=== PATIENT | female | born 1960 | race Asian ===

== ENCOUNTER 2017-11-06 10:50 | Outpatient (CLI) | payer BC, MEDICAID ==
[2017-11-06 19:09] LABS: BASOPHILS # (AUTO) 0.1 10^3/uL (0.0-0.1); BASOPHILS % (AUTO) 1.3 %; EOSINOPHILS # (AUTO) 0.1 10^3/uL (0.0-0.7); EOSINOPHILS % (AUTO) 2.1 %; HGB - HEMOGLOBIN 13.4 g/dL (12.0-16.0); LYMPHOCYTES # (AUTO) 1.7 10^3/uL (1.5-3.5); LYMPHOCYTES % (AUTO) 39.2 %; MEAN CORPUSCULAR HEMOGLOBIN 30.1 pg (27.0-31.0); MEAN CORPUSCULAR HGB CONC 32.8 g/dL (32.0-36.0); MEAN CORPUSCULAR VOLUME 91.9 fL (81.0-99.0); MEAN PLATELET VOLUME 8.2 fL (7.9-10.8); MONOCYTES # (AUTO) 0.3 10^3/uL (0.0-1.0); NEUTROPHILS # (AUTO) 2.1 10^3/uL (1.5-6.6); NEUTROPHILS % (AUTO) 49.4 %; PLT - PLATELET COUNT 229 10^3/uL (130-450); RED BLOOD COUNT 4.46 10^6/uL (4.20-5.40); RED CELL DISTRIBUTION WIDTH 13.8 % (12.0-15.0); WHITE BLOOD COUNT 4.3 x10^3/uL (4.8-10.8)
[2017-11-06 19:25] LABS: ALBUMIN 4.5 g/dL (3.2-5.5); ALBUMIN/GLOBULIN RATIO 1.1 (1.0-2.2); ALKALINE PHOSPHATASE 64 IU/L (42-121); ALT ALANINE AMINOTRANSFERASE 21 IU/L (10-60); AST ASPARTATE AMINOTRANSFERASE 28 IU/L (10-42); BILIRUBIN,TOTAL 0.9 mg/dL (0.2-1.0); BUN - BLOOD UREA NITROGEN 12 mg/dL (6-20); CALCIUM 9.2 mg/dL (8.5-10.3); CARBON DIOXIDE - CO2 27 mmol/L (21-32); CHLORIDE 104 mmol/L (101-111); CHOL/HDL RATIO 4.1 (<4.4); CHOLESTEROL 231 mg/dL; CREATININE 0.5 mg/dL (0.4-1.0); GFR - MDRD 126 (>89); GLUCOSE 98 mg/dL (70-100); HDL CHOLESTEROL 56 mg/dL; LDL CHOLESTEROL,CALCULATED 161 mg/dL; LDL/HDL RATIO 2.9 (<4.4); SODIUM 138 mmol/L (135-145); TOTAL PROTEIN 8.6 g/dL (6.7-8.2); VLDL CHOLESTEROL 14 mg/dL
[2017-11-06 19:28] LABS: HB2 TOTAL 14.9 g/dL; HEMOGLOBIN A1C 0.73 g/dL; HEMOGLOBIN A1C % 6.6 % (4.6-6.2)
[2017-11-06 19:32] LABS: THYROID STIMULATING HORMONE 0.72 uIU/mL (0.34-5.60)
== END 2017-11-06 10:51 | disposition home or self-care (01) ==
LOC: LAB.WCP 10:50
PROVIDERS: ATTEND Family Medicine
DX: Z00.00 Encounter for general adult medical examination without abnormal findings (principal)
CPT/HCPCS: 36415; 80053; 80061; 82306; 82607; 82746; 83036; 83721; 84443; 85025

== ENCOUNTER 2017-11-12 13:30 | Outpatient (CLI) | payer BC ==
[2017-11-12 20:00] LABS: HB2 TOTAL 15.2 g/dL; HEMOGLOBIN A1C 0.66 g/dL; HEMOGLOBIN A1C % 6.1 % (4.6-6.2)
== END 2017-11-12 13:31 ==
LOC: LAB.WCP 13:30
PROVIDERS: ATTEND Family Medicine
DX: R73.9 Hyperglycemia, unspecified (principal)
CPT/HCPCS: 36415; 83036

== ENCOUNTER 2019-04-02 09:01 | Outpatient (CLI) | payer OTHER ==
--- NOTE | 2019-04-04 02:28 | XRAY Report ---
Reason: HEEL PAIN Procedure Date: 04/02/2019 Accession Number: [id number] / [id number] Procedure: XRN - Foot 3 View RT CPT Code: FULL RESULT: EXAM: RIGHT FOOT RADIOGRAPHY EXAM DATE: 04/02/2019 09:45 AM. CLINICAL HISTORY: HEEL PAIN. COMPARISON: None. TECHNIQUE: 3 views. FINDINGS: Bones: No evidence of acute fracture. Plantar and posterior calcaneal spurring. Joints: Mild osteoarthritis at the first metatarsophalangeal joint. Soft Tissues: Abnormal thickening of the Achilles tendon, which may represent mucoid degeneration or tear. IMPRESSION: Plantar and posterior calcaneal spurring. Abnormal thickening of the Achilles tendon, which may represent mucoid degeneration or tear. RADIA
== END 2019-04-02 09:02 | disposition home or self-care (01) ==
LOC: DI.N 09:01
PROVIDERS: ATTEND Family Medicine
DX: M77.31 Calcaneal spur, right foot (principal)

== ENCOUNTER 2019-04-02 09:07 | Outpatient (CLI) | payer OTHER ==
[2019-04-02 12:01] LABS: BASOPHILS % (AUTO) 0.6 %; EOSINOPHILS # (AUTO) 0.2 10^3/uL (0.0-0.7); EOSINOPHILS % (AUTO) 3.4 %; HGB - HEMOGLOBIN 12.7 g/dL (12.0-16.0); LYMPHOCYTES # (AUTO) 1.9 10^3/uL (1.5-3.5); LYMPHOCYTES % (AUTO) 36.2 %; MEAN CORPUSCULAR HEMOGLOBIN 29.7 pg (27.0-31.0); MEAN CORPUSCULAR HGB CONC 31.7 g/dL (32.0-36.0); MEAN CORPUSCULAR VOLUME 93.7 fL (81.0-99.0); MEAN PLATELET VOLUME 10.1 fL (7.9-10.8); MONOCYTES # (AUTO) 0.4 10^3/uL (0.0-1.0); MONOCYTES % (AUTO) 8.1 %; NEUTROPHILS # (AUTO) 2.7 10^3/uL (1.5-6.6); NEUTROPHILS % (AUTO) 51.5 %; PLT - PLATELET COUNT 240 10^3/uL (130-450); RED BLOOD COUNT 4.28 10^6/uL (4.20-5.40); RED CELL DISTRIBUTION WIDTH 14.2 % (12.0-15.0); WHITE BLOOD COUNT 5.3 x10^3/uL (4.8-10.8)
[2019-04-02 12:14] LABS: ALBUMIN 4.1 g/dL (3.2-5.5); ALBUMIN/GLOBULIN RATIO 0.9 (1.0-2.2); ALKALINE PHOSPHATASE 64 IU/L (42-121); ALT ALANINE AMINOTRANSFERASE 21 IU/L (10-60); AST ASPARTATE AMINOTRANSFERASE 25 IU/L (10-42); BILIRUBIN,TOTAL 0.8 mg/dL (0.2-1.0); BUN - BLOOD UREA NITROGEN 15 mg/dL (6-20); CALCIUM 9.2 mg/dL (8.5-10.3); CARBON DIOXIDE - CO2 29 mmol/L (21-32); CHLORIDE 105 mmol/L (101-111); CHOL/HDL RATIO 3.6 (<4.4); CHOLESTEROL 197 mg/dL; CREATININE 0.6 mg/dL (0.4-1.0); GFR - MDRD 102 (>89); GLUCOSE 120 mg/dL (70-100); HDL CHOLESTEROL 54 mg/dL; LDL CHOLESTEROL,CALCULATED 125 mg/dL; LDL/HDL RATIO 2.3 (<4.4); SODIUM 140 mmol/L (135-145); TOTAL PROTEIN 8.7 g/dL (6.7-8.2); VLDL CHOLESTEROL 18 mg/dL
[2019-04-02 12:17] LABS: HB2 TOTAL 13.4 g/dL; HEMOGLOBIN A1C 0.64 g/dL; HEMOGLOBIN A1C % 6.5 % (4.6-6.2)
== END 2019-04-02 23:59 | disposition home or self-care (01) ==
LOC: LAB.N 09:07
PROVIDERS: ATTEND Family Medicine
DX: E78.5 Hyperlipidemia, unspecified (principal); R73.9 Hyperglycemia, unspecified
CPT/HCPCS: 36415; 80053; 80061; 83036; 83721; 84443; 85025

== ENCOUNTER 2019-05-14 10:40 | Outpatient (CLI) | payer OTHER ==
--- NOTE | 2019-05-17 09:55 | Mammography Report ---
Reason: ROUTINE MAMMO Procedure Date: 05/14/2019 Accession Number: [id number] / [id number] Procedure: MGN - Screening Mammo Dig Bilat CPT Code: FULL RESULT: EXAM: Screening Mammo Dig Bilat DATE: 05/14/2019 10:56 AM CLINICAL HISTORY: New baseline exam TECHNIQUE: (B) - Bilateral CC and MLO views were obtained. COMPARISON: None PARENCHYMAL PATTERN: (D) - The breasts demonstrate heterogeneously dense fibroglandular parenchyma bilaterally. FINDINGS: Left breast: There are no suspicious masses, calcifications, or areas of distortion. Right breast: Asymmetric soft tissue MLO projection anterior inferior right breast. Few faint retroareolar calcifications CC projection. IMPRESSION: Incomplete examination. BI-RADS category 0. Needs additional evaluation right breast by true lateral, spot compression, and magnification views. Ultrasound if indicated based on these additional views. Negative left breast. RECOMMENDATION: (ADDMU) - Additional views using both Mammography and Ultrasound recommended. Right breast BI-RADS CATEGORY: (0) - Incomplete Examination - need additional evaluation. STANDARD QUALIFYING STATEMENTS: 1. This examination was not reviewed with the aid of Computer-Aided Detection (CAD). 2. A negative or benign imaging report should not preclude biopsy if clinically suspicious findings are present. 3. Dense breasts may obscure an underlying neoplasm. 4. This examination was reviewed without the aid of 3D breast imaging (tomosynthesis).
== END 2019-05-14 10:41 | disposition home or self-care (01) ==
LOC: DI.N 10:40
DX: Z12.31 Encounter for screening mammogram for malignant neoplasm of breast (principal); R92.8 Other abnormal and inconclusive findings on diagnostic imaging of breast
CPT/HCPCS: 77067

== ENCOUNTER 2019-08-27 12:22 | Outpatient (CLI) | payer OTHER ==
--- NOTE | 2019-08-27 15:47 | Mammography Report ---
Reason: ABN MAMMO - RT SPEC VIEWS Procedure Date: 08/27/2019 Accession Number: [id number] / [id number] Procedure: MARJORIE - Diag Special Views Dig RT CPT Code: Final Report FULL RESULT: EXAM: Diag Special Views Dig RT DATE: 08/27/2019 1:16 PM CLINICAL HISTORY: Diagnostic examination. The patient is recalled from a new baseline screening examination for right breast asymmetry and retroareolar calcifications. TECHNIQUE: (R) - Right right CC, spot magnified CC, spot MLO, ML and spot magnified ML images are obtained. Focused right breast ultrasound is performed. COMPARISON: 05/14/2019. PARENCHYMAL PATTERN: (D) - The breast(s) demonstrate(s) heterogeneously dense fibroglandular parenchyma. FINDINGS: The isodense partially obscured right lower breast nodule demonstrates subtle associated calcifications and is tomographically localized to the 6:00 position 3 cm from the nipple on ML image 27 and CC image 30. Additional imaging of the retroareolar region demonstrates no suspicious grouping of separate calcifications. Focused right breast ultrasound in the retroareolar 6:00 right breast demonstrates a shadowing partially hyperechoic partially hypoechoic ill-defined mass measuring at least 1.1 x 0.7 cm, suspicious. IMPRESSION: Suspicious findings. BI-RADS category 4. RECOMMENDATION: (BIOPSY) - ultrasound-guided right breast biopsy. BI-RADS CATEGORY: (4) - Suspicious. STANDARD QUALIFYING STATEMENTS: 1. This examination was not reviewed with the aid of Computer-Aided Detection (CAD). 2. A negative or benign imaging report should not preclude biopsy if clinically suspicious findings are present. 3. Dense breasts may obscure an underlying neoplasm. 4. This examination was reviewed with the aid of 3D breast imaging (tomosynthesis).
== END 2019-08-27 12:23 | disposition home or self-care (01) ==
LOC: DI 12:22
PROVIDERS: ATTEND Family Medicine
DX: R92.8 Other abnormal and inconclusive findings on diagnostic imaging of breast (principal)
CPT/HCPCS: 76642

== ENCOUNTER 2019-09-28 11:18 | Outpatient (CLI) | payer OTHER ==
[2019-09-28] MEDS ORDERED: BUFFERED LIDOCAINE 10 ML SYRINGE ONE (11:30)
--- NOTE | 2019-09-28 13:13 | Ultrasound Report ---
Reason: ABNORMAL MAMMO Procedure Date: 09/28/2019 Accession Number: [id number] / [id number] Procedure: US - Biopsy Breast Core CPT Code: Final Report FULL RESULT: PROCEDURE: Ultrasound-guided needle biopsy right breast mass. CLINICAL DATA: Targeted mass measuring 1.1 x 0.7 cm with irregular margins in the 6 o'clock axis of the right breast. Informed consent was obtained. Using standard aseptic technique, 1% buffered lidocaine was injected into the right breast for local anesthesia. A small kishan was made in the skin with a #11 blade. A 12-gauge Eyebrid Blaze vacuum-assisted device was used to obtain 3 specimens. A specialized biopsy marker clip was placed into the biopsy cavity under ultrasound guidance. The patient was taken to separate mammography machine and a two-view digital mammography was performed to verify the clip placement and any complications. The mammography showed concordant clip position and biopsy changes in the previous location of the right breast nodule. The wound was dressed and ice applied. The patient was observed for approximately 15 minutes, then was discharged from diagnostic imaging Department in good condition following instructions on wound care and obtaining biopsy results. The patient is scheduled to receive the biopsy results from the referring physician. The tissue was sent for histologic analysis. IMPRESSION: Ultrasound-guided biopsy of the right breast. AN ADDENDUM WILL BE MADE TO THIS REPORT WHEN PATHOLOGY IS REVIEWED TO ESTABLISH CONCORDANCE.
[2019-09-28] MEDS ORDERED: BUFFERED LIDOCAINE 10 ML SYRINGE IU ONE (16:40)
== END 2019-09-28 11:19 | disposition home or self-care (01) ==
LOC: DI 11:18
PROVIDERS: ATTEND Family Medicine
DX: N63.15 Unspecified lump in the right breast, overlapping quadrants (principal); N62 Hypertrophy of breast
CPT/HCPCS: 19083

== ENCOUNTER 2019-10-22 12:47 | Outpatient (CLI) | payer OTHER ==
--- NOTE | 2019-10-22 15:01 | Ultrasound Report ---
Reason: POSTMENOPAUSAL BLEEDING Procedure Date: 10/22/2019 Accession Number: [id number] / [id number] Procedure: US - Pelvic w/Transvaginal CPT Code: Final Report FULL RESULT: EXAM: PELVIC ULTRASOUND EXAM DATE: 10/22/2019 02:38 PM. CLINICAL HISTORY: Postmenopausal bleeding. COMPARISON: None. TECHNIQUE: Realtime transabdominal pelvic scan performed to identify the uterus and adnexa and as an overview of other pelvic structures, followed by transvaginal scan to provide greater detail of the uterus and adnexa, with static image documentation. FINDINGS: Uterus: 7.9 x 3.5 x 3.7 cm, volume 54 cc. Anteverted position. Normal in overall size and echotexture. Masses: None. Endometrium: 14 mm. A bilobed echogenic vascular lesion is present in the endometrial canal partially surrounded by fluid measuring 2.5 x 1.3 x 2.0 cm. Cervix: Some fluid in the endocervical canal present. Right Ovary: 1.9 x 0.9 x 1.6 cm, volume 1.4 cc. Normal echotexture and blood flow. Left Ovary: 1.4 x 1.8 x 1.3 cm, volume 1.7 cc. Normal echotexture and blood flow. Free Fluid: None. Other: None. IMPRESSION: 1. Prominent ovoid vascular mass in the endometrial canal, most likely a large polyp. Malignancy less likely. This may be the cause of bleeding. 2. Ovaries within normal limits. RADIA
== END 2019-10-22 12:48 | disposition home or self-care (01) ==
LOC: DI 12:47
PROVIDERS: ATTEND Obstetrics & Gynecology
DX: N85.9 Noninflammatory disorder of uterus, unspecified (principal)
CPT/HCPCS: 76830; 76856

== ENCOUNTER 2019-12-02 08:00 | Outpatient (CLI) | payer OTHER ==
[2019-12-02 17:59] LABS: HGB - HEMOGLOBIN 12.9 g/dL (12.0-16.0)
== END 2019-12-02 23:59 | disposition home or self-care (01) ==
LOC: LAB.WCP 08:00
PROVIDERS: ATTEND Obstetrics & Gynecology Gynecologic Oncology
DX: C54.1 Malignant neoplasm of endometrium (principal); Z13.1 Encounter for screening for diabetes mellitus
CPT/HCPCS: 36415; 82947; 85014; 85018

== ENCOUNTER 2020-10-27 07:00 | Outpatient (CLI) | payer OTHER ==
[2020-10-27 12:55] LABS: ESTIMATED AVERAGE GLUCOSE 154 mg/dL (70-100)
[2020-10-27 13:21] LABS: BASOPHILS % (AUTO) 0.9 %; EOSINOPHILS # (AUTO) 0.3 10^3/uL (0.0-0.7); EOSINOPHILS % (AUTO) 8.8 %; HCT - HEMATOCRIT 40.5 % (37.0-47.0); HGB - HEMOGLOBIN 13.3 g/dL (12.0-16.0); LYMPHOCYTES # (AUTO) 0.6 10^3/uL (1.5-3.5); LYMPHOCYTES % (AUTO) 17.1 %; MEAN CORPUSCULAR HEMOGLOBIN 30.8 pg (27.0-31.0); MEAN CORPUSCULAR HGB CONC 32.8 g/dL (32.0-36.0); MEAN CORPUSCULAR VOLUME 93.8 fL (81.0-99.0); MEAN PLATELET VOLUME 10.3 fL (7.9-10.8); MONOCYTES # (AUTO) 0.3 10^3/uL (0.0-1.0); MONOCYTES % (AUTO) 9.7 %; NEUTROPHILS # (AUTO) 2.2 10^3/uL (1.5-6.6); NEUTROPHILS % (AUTO) 63.5 %; PLT - PLATELET COUNT 134 10^3/uL (130-450); RED BLOOD COUNT 4.32 10^6/uL (4.20-5.40); RED CELL DISTRIBUTION WIDTH 13.4 % (12.0-15.0); WHITE BLOOD COUNT 3.4 x10^3/uL (4.8-10.8)
[2020-10-27 13:48] LABS: THYROID STIMULATING HORMONE 1.14 uIU/mL (0.34-5.60)
[2020-10-27 13:50] LABS: ALBUMIN 4.1 g/dL (3.2-5.5); ALBUMIN/GLOBULIN RATIO 0.9 (1.0-2.2); ALKALINE PHOSPHATASE 59 IU/L (42-121); ALT ALANINE AMINOTRANSFERASE 19 IU/L (10-60); AST ASPARTATE AMINOTRANSFERASE 21 IU/L (10-42); BILIRUBIN,TOTAL 0.8 mg/dL (0.2-1.0); BUN - BLOOD UREA NITROGEN 13 mg/dL (6-20); CALCIUM 9.4 mg/dL (8.5-10.3); CARBON DIOXIDE - CO2 27 mmol/L (21-32); CHLORIDE 104 mmol/L (101-111); CHOL/HDL RATIO 3.4 (<4.4); CHOLESTEROL 198 mg/dL; CREATININE 0.5 mg/dL (0.4-1.0); GFR - MDRD 125 (>89); GLUCOSE 143 mg/dL (70-100); HDL CHOLESTEROL 58 mg/dL; LDL CHOLESTEROL,CALCULATED 108 mg/dL; LDL/HDL RATIO 1.9 (<4.4); POTASSIUM 3.8 mmol/L (3.5-5.0); SODIUM 139 mmol/L (135-145); TOTAL PROTEIN 8.7 g/dL (6.7-8.2); TRIGLYCERIDES 161 mg/dL; VLDL CHOLESTEROL 32 mg/dL
== END 2020-10-27 23:59 | disposition home or self-care (01) ==
LOC: LAB.WCP 07:00
PROVIDERS: ATTEND Nurse Practitioner Family
DX: E78.5 Hyperlipidemia, unspecified (principal); R73.03 Prediabetes; R73.9 Hyperglycemia, unspecified; N95.0 Postmenopausal bleeding; C54.1 Malignant neoplasm of endometrium
CPT/HCPCS: 36415; 80053; 80061; 82565; 83036; 83721; 84443; 84520; 85025

== ENCOUNTER 2021-02-27 17:59 | Outpatient (CLI) | payer OTHER ==
--- NOTE | 2021-02-28 09:16 | XRAY Report ---
PROCEDURE: Lumbar Spine 2 View INDICATIONS: BACK PX, LUMBAR WITH RADICULOPATHY TECHNIQUE: 3 views of the lumbar spine were acquired. COMPARISON: None. FINDINGS: Mild dextrocurvature. No acute fracture. Scattered multilevel endplate spurring and diffuse facet art hropathy. Mild narrowing of the L5-S1 disc space, L1-L2 and L2-L3 disc spaces. Mild narrowing of the L3-L4 disc space. Prominent ununited osteophytes seen projecting anterior to the L3-L4 disc space. IMPRESSION: Lumbar spondylosis and mild dextrocurvature as above. Diffuse facet arthropathy Reviewed by: Renaldo Perry MD on 02/28/2021 9:15 AM PDT Approved by: Renaldo Perry MD on 02/28/2021 9:15 AM PDT Station ID: [id number]
== END 2021-02-27 18:00 | disposition home or self-care (01) ==
LOC: DI.N 17:59
PROVIDERS: ATTEND Family Medicine
DX: M47.26 Other spondylosis with radiculopathy, lumbar region (principal); M47.27 Other spondylosis with radiculopathy, lumbosacral region

== ENCOUNTER 2021-03-13 07:07 | Outpatient (CLI) | payer OTHER ==
[2021-03-13 13:31] LABS: CALCIUM 9.7 mg/dL (8.5-10.3); CREATININE 0.6 mg/dL (0.4-1.0)
[2021-03-13 13:54] LABS: ESTIMATED AVERAGE GLUCOSE 120 mg/dL (70-100); HEMOGLOBIN A1c% 5.8 % (4.27-6.07)
== END 2021-03-13 23:59 | disposition home or self-care (01) ==
LOC: LAB.WCP 07:07
PROVIDERS: ATTEND Family Medicine
DX: E11.9 Type 2 diabetes mellitus without complications (principal)
CPT/HCPCS: 36415; 80048; 83036

== ENCOUNTER 2022-11-22 07:32 | Day surgery (SDC) | payer OTHER ==
[2022-11-22] MEDS ORDERED: LACTATED RINGERS 1,000 ML IV ONE (07:44)
--- NOTE | 2022-11-22 08:14 | ANESTHESIA ---
Pre-Anesthesia VS, & Labs - Diagnosis screening - Procedure colonoscopy Vital Signs: Temp Pulse Resp BP Pulse Ox O2 Flow Rate 36.2 C L 115 H 14 147/83 H 97 11/22/22 07:47 11/22/22 07:47 11/22/22 07:47 11/22/22 07:47 11/22/22 07:47 Height: 5 ft Weight (kg): 58 kg Body Mass Index: 25.0 BMI Classification: Overweight - NPO >8 hours - Is Patient ?: No Home Medications and Allergies Home Medications: Ambulatory Orders Multivitamin 1 tab PO DAILY 11/21/22 Multivitamin 1 tab PO DAILY 11/21/22 Allergies/Adverse Reactions: Allergies Allergy/AdvReac Type Severity Reaction Status Date / Time oxycodone AdvReac Dizziness Verified 11/22/22 07:53 Anes History & Medical History - Anesthetic History Anesthesia Complications: reports: No previous complications Family history of Anesthesia Complications: Denies Family history of Malignant Hyperthermia: Denies - Medical History Cardiovascular: reports: High cholesterol, Other (descending aortic arch aneurysm- currently monitoring with no intervention) Pulmonary: reports: None Gastrointestinal: reports: None Urinary: reports: None Musculoskeletal: reports: None Endocrine/Autoimmune: Skin: reports: None History of Cancer?: Yes (uterine) - Surgical History Gynecologic: reports: Hysterectomy Exam General: Alert, Oriented x3, Cooperative Dental: Dentures full Upper, Dentures full Lower Mouth Openin Fingerbreadth Neck Mobility: Normal Mallampati classification: I Thyromental Distance: 4-6 cm Respiratory: Lungs clear Cardiovascular: Regular rate Plan Anesthesia Type: General, Total IV Consent for Procedure(s) Verified and Reviewed: Yes Code Status: Attempt Resuscitation ASA classification: 3-Severe systemic disease Is this case an emergency?: No
[2022-11-22] MEDS ORDERED: PROPOFOL 500 MG/50 ML 500 MG/50 ML VIAL ONE (08:16)
--- NOTE | 2022-11-22 08:41 | HISTORY & PHYSICAL EXAMINATION ---
Chief Complaint - Chief Complaint Chief Complaint: here for colon cancer screening History of Present Illness - History Obtained From Records Reviewed: yes History obtained from: pt Exam Limitations: none - History of Present Illness HPI Comment/Other: here for colon cancer screening. no gi symptoms. no prior screening. hx vaginal radiation and occasional blood. 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 Meds/Allgy - Home Medications Home Medications: Ambulatory Orders Medication Instructions Recorded Confirmed Multivitamin 1 tab PO DAILY 11/21/22 11/22/22 - Allergies Allergies/Adverse Reactions: Allergies Allergy/AdvReac Type Severity Reaction Status Date / Time oxycodone AdvReac Dizziness Verified 11/22/22 07:53 Review of Systems - Other Findings Other Findings: 10 pt ros as above otherwise unremarkable Exam - Vital Signs Reviewed Vital Signs: Yes Vital Signs: Vital Signs x48h Temp Pulse Resp BP Pulse Ox 11/22/22 07:47 36.2 C L 115 H 14 147/83 H 97 - Physical Exam General Appearance: positive: No acute distress, Alert Eyes Bilateral: positive: PERRL, EOMI ENT: positive: No signs of dehydration Neck: positive: No JVD, Trachea midline Respiratory: positive: No respiratory distress, Breath sounds nml Cardiovascular: positive: Regular rate & rhythm Abdomen: positive: No distention Neurologic/Psychiatric: positive: Oriented x3 Conclusion/Plan - Problem List (1) Colon cancer screening Conclusion/Plan: plan colonoscopy. parq held and consent obtained
[2022-11-22] MEDS ORDERED: MIDAZOLAM 2 MG/2 ML VIAL ONE (08:48)
[2022-11-22] MEDS ORDERED: SIMETHICONE 40 MG/0.6 ML 30 ML BOTTLE PO ONE (08:55)
[2022-11-22] MEDS ORDERED: LACTATED RINGERS 300 ML IV ONE (09:18)
[2022-11-22 09:58] VITALS: BP 119/61
--- NOTE | 2022-11-22 12:06 | ANESTHESIA POST OP EVALUATION ---
Anesthesia Post Eval - Post Anesthesia Eval Vitals: Last Vital Signs Temp 36.4 C L 11/22/22 09:57 Pulse 89 11/22/22 09:57 Resp 17 11/22/22 09:57 BP 119/61 11/22/22 09:57 Pulse Ox 98 11/22/22 09:57 O2 Flow Rate CV Function Including HR & BP: Stable Pain Control: Satisfactory Nausea & Vomiting: Negative Mental Status: Baseline Respiratory Status: Airway Patent Hydration Status: Satisfactory Anesthesia Complications: None
== END 2022-11-22 07:33 | disposition home or self-care (01) ==
LOC: SDS 07:32
PROVIDERS: ATTEND Surgery
DX: Z12.11 Encounter for screening for malignant neoplasm of colon (principal); K57.30 Diverticulosis of large intestine without perforation or abscess without bleeding
CPT/HCPCS: 45378; A9270; J7120

== ENCOUNTER 2022-11-28 09:06 | Outpatient (CLI) | payer OTHER ==
[2022-11-28 11:49] LABS: BASOPHILS # (AUTO) 0.1 10^3/uL (0.0-0.1); BASOPHILS % (AUTO) 1.4 %; EOSINOPHILS # (AUTO) 0.2 10^3/uL (0.0-0.7); EOSINOPHILS % (AUTO) 4.5 %; HCT - HEMATOCRIT 40.9 % (37.0-47.0); HGB - HEMOGLOBIN 12.9 g/dL (12.0-16.0); LYMPHOCYTES # (AUTO) 1.4 10^3/uL (1.5-3.5); LYMPHOCYTES % (AUTO) 38.4 %; MEAN CORPUSCULAR HEMOGLOBIN 28.9 pg (27.0-31.0); MEAN CORPUSCULAR HGB CONC 31.5 g/dL (32.0-36.0); MEAN CORPUSCULAR VOLUME 91.7 fL (81.0-99.0); MEAN PLATELET VOLUME 10.3 fL (7.9-10.8); MONOCYTES # (AUTO) 0.3 10^3/uL (0.0-1.0); MONOCYTES % (AUTO) 8.7 %; NEUTROPHILS # (AUTO) 1.7 10^3/uL (1.5-6.6); NEUTROPHILS % (AUTO) 46.7 %; PLT - PLATELET COUNT 215 10^3/uL (130-450); RED BLOOD COUNT 4.46 10^6/uL (4.20-5.40); RED CELL DISTRIBUTION WIDTH 13.7 % (12.0-15.0); WHITE BLOOD COUNT 3.6 x10^3/uL (4.8-10.8)
[2022-11-28 12:22] LABS: ESTIMATED AVERAGE GLUCOSE 128 mg/dL (70-100); HEMOGLOBIN A1c% 6.1 % (4.27-6.07)
[2022-11-28 13:49] LABS: ALBUMIN 4.2 g/dL (3.2-5.5); ALBUMIN/GLOBULIN RATIO 1.1 (1.0-2.2); ALKALINE PHOSPHATASE 67 IU/L (42-121); ALT ALANINE AMINOTRANSFERASE 16 IU/L (10-60); AST ASPARTATE AMINOTRANSFERASE 22 IU/L (10-42); BILIRUBIN,TOTAL 0.9 mg/dL (0.2-1.0); BUN - BLOOD UREA NITROGEN 14 mg/dL (6-20); CALCIUM 9.3 mg/dL (8.5-10.3); CARBON DIOXIDE - CO2 27 mmol/L (21-32); CHLORIDE 108 mmol/L (101-111); CHOL/HDL RATIO 3.3 (<4.4); CHOLESTEROL 202 mg/dL; CREATININE 0.5 mg/dL (0.4-1.0); GFR - MDRD 124 (>89); GLUCOSE 110 mg/dL (70-100); HDL CHOLESTEROL 62 mg/dL; LDL CHOLESTEROL,CALCULATED 122 mg/dL; SODIUM 140 mmol/L (135-145); TOTAL PROTEIN 8.2 g/dL (6.7-8.2); TRIGLYCERIDES 92 mg/dL; VLDL CHOLESTEROL 18 mg/dL
[2022-11-28 14:03] LABS: THYROID STIMULATING HORMONE 0.85 uIU/mL (0.34-5.60)
[2022-11-28 14:20] LABS: CREATININE,URINE 99.1 mg/dL; MICROALBUM/CREATININE RATIO,UR 20.2 ug/mg (<30.0)
== END 2022-11-28 09:07 | disposition home or self-care (01) ==
LOC: LAB.N 09:06
PROVIDERS: ATTEND Physician Assistant
DX: E11.9 Type 2 diabetes mellitus without complications (principal); R03.0 Elevated blood-pressure reading, without diagnosis of hypertension
CPT/HCPCS: 36415; 80053; 80061; 82043; 82570; 83036; 83721; 84443; 85025